=== PATIENT | female | born 1940 | race Caucasian/White ===

== ENCOUNTER 2016-10-08 15:00 | Outpatient (RCR) | payer OTHER | END 2016-10-23 | disposition home or self-care (01) | LOC: PTY 15:00 | DX: M25.511 Pain in right shoulder (principal) | CPT/HCPCS: 97110; 97140; 97161; G0283 ==

== ENCOUNTER 2016-10-29 15:10 | Outpatient (RCR) | payer OTHER | END 2016-11-20 | disposition home or self-care (01) | LOC: PTY 15:10 | DX: M25.511 Pain in right shoulder (principal) | CPT/HCPCS: 97110; 97140; G0283 ==

== ENCOUNTER 2016-11-22 14:30 | Outpatient (RCR) | payer OTHER | END 2016-12-21 | disposition home or self-care (01) | LOC: PTY 14:30 | DX: M25.511 Pain in right shoulder (principal) | CPT/HCPCS: 97110; 97140; G0283 ==

== ENCOUNTER 2017-05-15 13:00 | Outpatient (RCR) | payer OTHER | END 2017-05-23 | disposition home or self-care (01) | LOC: PTY 13:00 | DX: M54.9 Dorsalgia, unspecified (principal); G89.29 Other chronic pain; M25.511 Pain in right shoulder; I10 Essential (primary) hypertension; F32.9 Major depressive disorder, single episode, unspecified; F41.9 Anxiety disorder, unspecified; M81.0 Age-related osteoporosis without current pathological fracture ==

== ENCOUNTER 2017-06-17 09:02 | Outpatient (RCR) | payer OTHER | END 2017-06-22 | disposition home or self-care (01) | LOC: PTY 09:02 | DX: M54.9 Dorsalgia, unspecified (principal); G89.29 Other chronic pain; I70.0 Atherosclerosis of aorta; E78.00 Pure hypercholesterolemia, unspecified; I10 Essential (primary) hypertension; F33.9 Major depressive disorder, recurrent, unspecified; M81.0 Age-related osteoporosis without current pathological fracture; G63 Polyneuropathy in diseases classified elsewhere ==

== ENCOUNTER 2017-07-22 11:00 | Outpatient (RCR) | payer OTHER | END 2017-07-23 | disposition home or self-care (01) | LOC: PTY 11:00 | PROVIDERS: ATTEND Internal Medicine | DX: M54.9 Dorsalgia, unspecified (principal); G89.29 Other chronic pain | CPT/HCPCS: 97110; 97116; G0283 ==

== ENCOUNTER 2017-08-05 12:38 | Outpatient (RCR) | payer OTHER | END 2017-08-22 | disposition home or self-care (01) | LOC: PTY 12:38 | PROVIDERS: ATTEND Internal Medicine | DX: M54.9 Dorsalgia, unspecified (principal); G89.29 Other chronic pain ==

== ENCOUNTER 2017-11-29 13:50 | Outpatient (RCR) | payer OTHER | END 2017-12-21 | disposition home or self-care (01) | LOC: PTY 13:50 | DX: G60.9 Hereditary and idiopathic neuropathy, unspecified (principal); Z91.81 History of falling; F32.9 Major depressive disorder, single episode, unspecified; F41.9 Anxiety disorder, unspecified; M81.0 Age-related osteoporosis without current pathological fracture ==

== ENCOUNTER 2017-12-25 09:30 | Outpatient (RCR) | payer OTHER | END 2018-01-20 | disposition home or self-care (01) | LOC: PTY 09:30 | DX: G60.9 Hereditary and idiopathic neuropathy, unspecified (principal); F32.9 Major depressive disorder, single episode, unspecified; F41.9 Anxiety disorder, unspecified; M81.0 Age-related osteoporosis without current pathological fracture ==